=== PATIENT | male | born 1960 | race Caucasian/White ===

== ENCOUNTER 2017-05-17 09:01 | Inpatient (IN) | payer MEDICARE, MEDICAID ==
[2017-05-17] VITALS (21 sets, daily range): BP systolic 106–152; BP diastolic 61–96
[~2017-05-17] VITALS: Ht 180.3 cm; Wt 133.3 kg
[~2017-05-17 09:01] MED LIST: ALB0.5UD IH; ALBU18HF2 INH; ASPI-1265 PO; ATOR40TA PO; CARV-49 PO; DIGO125T PO; FURO-150 PO; GABA600T2 PO; INSU100V13 SQ; INSU100V9 SQ; LEVO25TA2 PO; METF500T4 PO; MULT-955 PO; NITR0.4T51 SL; OMEP40CA37 PO; POTA20TA19 PO; RIVA15TA PO; famotidine 20mg tablet PO ONE; ringers solution, lacted 1,000 ML IV SCH
[2017-05-17 09:58] LABS: BASOPHILS # (AUTO) 0.1 X10'3 (0-0.2); BASOPHILS % (AUTO) 0.6 % (0-1); EOSINOPHILS # (AUTO) 0.3 X10'3 (0-0.9); EOSINOPHILS % (AUTO) 3.3 % (0-6); HEMATOCRIT 44.6 % (42.0-52.0); LYMPHOCYTES # (AUTO) 1.3 X10'3 (1.1-4.8); LYMPHOCYTES % (AUTO) 12.9 % (21-51); MEAN CORPUSCULAR HEMOGLOBIN 32.7 PG (27.0-31.0); MEAN CORPUSCULAR HGB CONC 33.7 % (33.0-36.5); MEAN PLATELET VOLUME 7.7 FL (7.4-10.4); MONOCYTES # (AUTO) 0.4 X10'3 (0-0.9); MONOCYTES % (AUTO) 4.5 % (2-12); NEUTROPHILS # (AUTO) 7.9 X10'3 (1.8-7.7); NEUTROPHILS % (AUTO) 78.7 % (42-75); PLATELET COUNT 224 X10'3 (140-440); RED CELL DISTRIBUTION WIDTH 15.1 % (11.5-14.5)
[2017-05-17 10:07] LABS: PARTIAL THROMBOPLASTIN TIME 25 SECONDS (22-32); PROTHROMBIN TIME 10.3 SECONDS (9.0-12.0)
[2017-05-17 10:12] LABS: ALANINE AMINOTRANSFERASE 21 U/L (12-78); ALBUMIN 3.7 G/DL (3.4-5.0); ALKALINE PHOSPHATASE 150 IU/L (46-116); ANION GAP 9 (8-16); ASPARTATE AMINO TRANSFERASE 17 U/L (10-37); BILIRUBIN,TOTAL 0.6 MG/DL (0.1-1.0); BLOOD UREA NITROGEN 13 MG/DL (7-18); BUN/CREATININE RATIO 13.1 (5.4-32.0); CALCIUM 9.1 MG/DL (8.5-10.1); CHLORIDE 103 MMOL/L (99-107); CREATININE 0.99 MG/DL (0.60-1.10); GLUCOSE 139 MG/DL (70-104); SODIUM 142 MMOL/L (135-145); TOTAL CARBON DIOXIDE 29.8 MMOL/L (24-32); TOTAL PROTEIN 7.5 G/DL (6.4-8.2); eGFR 78 ML/MIN
[2017-05-17 10:26] LABS: HEMOGLOBIN A1C 6.5 % (4.5-6.2)
[2017-05-17] MEDS ORDERED: NORMAL SALINE IV ONE (10:26)
[2017-05-17] MEDS ORDERED: clindamycin-Cleocin 900mg/D5W 50 ML IV ONE (10:26)
[2017-05-17] MEDS ORDERED: GENTAMICIN IV ONE (10:26)
[2017-05-17] MEDS ORDERED: albuterol 2.5 MG/3 ML nebule NEB ONE (10:50)
[2017-05-17] MEDS ORDERED: carvedilol 6.25mg tablet PO ONE (11:10)
[2017-05-17] MEDS ORDERED: ceFAZolin 1000mg inj ONE (11:27)
[2017-05-17] MEDS ORDERED: BUPIVAcaine/PF 2.5 mg/ml (0.25%) 30ml vial ONE (11:27)
[2017-05-17] MEDS ORDERED: epiNEPHrine 1 mg/ml inj ONE (11:27)
[2017-05-17] MEDS ORDERED: metoprolol tartrate 50mg tablet PO ONE (11:30)
[2017-05-17] MEDS ORDERED: MAGN400C PO (11:38)
[2017-05-17] MEDS ORDERED: FAMO-128 PO (11:38)
[2017-05-17] MEDS ORDERED: METO50TA17 PO (11:38)
[2017-05-17] MEDS ORDERED: CAPT50TA4 PO (11:38)
[2017-05-17] MEDS ORDERED: fentaNYL/PF 50MCG/1 ML 2ML syringe ONE (12:19)
[2017-05-17] MEDS ORDERED: sevoflurane 250ml liquid IH ONE (12:20)
[2017-05-17] MEDS ORDERED: neostigmine methylsulfate 1 MG/ML 10ml vial ONE (13:01)
[2017-05-17] MEDS ORDERED: LIDOcaine 2% (20mg/ml) 5ml vial ONE (13:01)
[2017-05-17] MEDS ORDERED: rocuronium 10mg/ml inj IV ONE (13:01)
[2017-05-17] MEDS ORDERED: ondansetron/PF 4mg/2ml inj ONE (13:01)
[2017-05-17] MEDS ORDERED: esmolol inj. 10 ML IV ONE (13:01)
[2017-05-17] MEDS ORDERED: propofol inj 20 ML IV ONE (13:01)
[2017-05-17] MEDS ORDERED: glycopyrrolate 0.2mg/ml inj ONE (13:02)
[2017-05-17] MEDS ORDERED: CADD PCA waste documentation MC PRN (13:10)
[2017-05-17] MEDS ORDERED: ondansetron/PF 4mg/2ml inj IV PRN ×2 (13:10→13:35)
[2017-05-17] MEDS ORDERED: naloxone 0.4 mg/ml inj IV PRN (13:10)
[2017-05-17] MEDS ORDERED: ringers solution, lacted 1,000 ML IV ONE (13:32)
[2017-05-17] MEDS ORDERED: meperidine/PF 25mg/ml syringe IV PRN ×2 (13:35)
[2017-05-17] MEDS ORDERED: morphine sulfate 8 MG/ML SYRINGE IV PRN ×2 (13:35)
[2017-05-17] MEDS ORDERED: hydrALAZINE 20mg/ml inj. IV PRN (13:35)
[2017-05-17] MEDS ORDERED: meperidine/PF 25mg/ml syringe IV ONE (13:35)
[2017-05-17] MEDS ORDERED: labetalol 20mg/4ml (5mg/ml) syringe IV PRN (13:35)
[2017-05-17] MEDS: HYDROmorphone/NS 1 mg/ml CADD 50 ML IV SCH ×6 (13:38→23:00)
[2017-05-17] MEDS ORDERED: dextrose 50%-water 50ml dispensing syringe IV PRN ×2 (15:05)
[2017-05-17] MEDS ORDERED: MESSAGE TO PHARMACY PO ONE (15:05)
[2017-05-17] MEDS ORDERED: dextrose ORAL solution 15 GM/59 ML bottle PO PRN ×2 (15:05)
[2017-05-17] MEDS ORDERED: glucagon, human recombinant 1mg kit SUBCUT PRN (15:05)
[2017-05-17] MEDS ORDERED: insulin Lispro (HumaLOG) vial - multi-dose SQ SCH (15:05)
[2017-05-17] MEDS: Insulin Detemir pen SQ SCH (21:00)
[2017-05-18 00:30] VITALS: BP 117/68
[2017-05-18] MEDS: HYDROmorphone/NS 1 mg/ml CADD 50 ML IV SCH ×6 (01:00→11:00)
[2017-05-18 04:26] VITALS: BP 133/82
[2017-05-18 08:00] VITALS: BP 128/83
[2017-05-18] MEDS: enoxaparin 40mg/0.4ml syringe SQ SCH (09:33)
[2017-05-18 11:52] VITALS: BP 145/75
[2017-05-18] MEDS: HYDROcodone/acetaminophen 5mg/325mg tablet PO PRN ×2 (14:34→20:17)
[2017-05-18] MEDS ORDERED: non-formulary drug (Albuterol Sulfate Nebs* (Proventil Nebs*) 2.5 MG) IH PRN (19:20)
[2017-05-18] MEDS ORDERED: nitroGLYCERIN 0.4mg SUBLingual tab SL PRN (19:20)
[2017-05-18] MEDS ORDERED: albuterol 2.5 MG/3 ML nebule NEB PRN (19:40)
[2017-05-18 20:00] VITALS: BP 120/67
[2017-05-18] MEDS: gabapentin 300mg capsule PO SCH (20:16)
[2017-05-18] MEDS: metFORMIN 500mg tablet PO SCH (20:22)
[2017-05-18] MEDS: Insulin Detemir pen SQ SCH (21:00)
[2017-05-18] MEDS ORDERED: famotidine 20mg tablet PO SCH (21:00)
[2017-05-19] VITALS: BP 102/53
[2017-05-19] MEDS: HYDROcodone/acetaminophen 5mg/325mg tablet PO PRN ×3 (03:07→13:40)
[2017-05-19 07:22] VITALS: BP 152/89
[2017-05-19] MEDS ORDERED: INSULIN GLARGINE HUM REC ANLOG 15 UNIT SQ SCH (08:00)
[2017-05-19] MEDS ORDERED: lisinopril 20mg tablet PO SCH (08:00)
[2017-05-19] MEDS ORDERED: potassium Cl 20 mEq SR tablet PO SCH (08:00)
[2017-05-19] MEDS ORDERED: digoxin 125mcg (0.125mg) tablet PO SCH (08:00)
[2017-05-19] MEDS ORDERED: levoTHYROXINE 25mcg tablet PO SCH (08:00)
[2017-05-19] MEDS ORDERED: aspirin 81mg tab.chew PO SCH (08:00)
[2017-05-19] MEDS ORDERED: metoprolol tartrate 50mg tablet PO SCH (08:00)
[2017-05-19] MEDS ORDERED: atorvastatin 20mg tablet PO SCH (08:00)
[2017-05-19] MEDS ORDERED: furosemide 20MG tablet PO SCH (08:00)
[2017-05-19] MEDS ORDERED: rivaroxaban 15mg tablet PO SCH (08:00)
[2017-05-19] MEDS ORDERED: magnesium oxide 400mg tablet PO SCH (08:00)
[2017-05-19] MEDS ORDERED: multivitamins, therapeutics tablet PO SCH (08:00)
[2017-05-19] MEDS: enoxaparin 40mg/0.4ml syringe SQ SCH (08:07)
[2017-05-19] MEDS: gabapentin 300mg capsule PO SCH (08:07)
[2017-05-19] MEDS: metFORMIN 500mg tablet PO SCH (08:09)
== END 2017-05-19 15:59 | disposition home or self-care (01) | DRG 418 ==
LOC: PAS 09:01 → EDSTATUS 12:00 → SUR 3N 15:02 → PAS 15:02 → SUR 3N 05-18 07:30
PROVIDERS: ADMIT Surgery; ATTEND Surgery
PROC: 0FB04ZX Excision of Liver, Percutaneous Endoscopic Approach, Diagnostic (ICD-10-PCS; 2017-05-17)
PROC: 0FT44ZZ Resection of Gallbladder, Percutaneous Endoscopic Approach (ICD-10-PCS; principal; 2017-05-17 12:20)
DX: K80.10 Calculus of gallbladder with chronic cholecystitis without obstruction (principal); Z68.41 Body mass index [BMI] 40.0-44.9, adult; I11.0 Hypertensive heart disease with heart failure; I50.9 Heart failure, unspecified; I25.10 Atherosclerotic heart disease of native coronary artery without angina pectoris; J44.9 Chronic obstructive pulmonary disease, unspecified; E11.9 Type 2 diabetes mellitus without complications; I48.91 Unspecified atrial fibrillation; E03.9 Hypothyroidism, unspecified; F32.9 Major depressive disorder, single episode, unspecified; E66.9 Obesity, unspecified; G47.33 Obstructive sleep apnea (adult) (pediatric); K21.9 Gastro-esophageal reflux disease without esophagitis; E78.5 Hyperlipidemia, unspecified; F17.210 Nicotine dependence, cigarettes, uncomplicated; F12.90 Cannabis use, unspecified, uncomplicated; Z88.0 Allergy status to penicillin; Z91.018 Allergy to other foods; Z79.899 Other long term (current) drug therapy; Z79.4 Long term (current) use of insulin; Z79.01 Long term (current) use of anticoagulants; Z79.82 Long term (current) use of aspirin; Z79.84 Long term (current) use of oral hypoglycemic drugs; Z85.820 Personal history of malignant melanoma of skin; Z83.3 Family history of diabetes mellitus; Z80.9 Family history of malignant neoplasm, unspecified; Z82.49 Family history of ischemic heart disease and other diseases of the circulatory system
CPT/HCPCS: 36415; 71010; 80053; 82948; 83036; 85025; 85610; 85730; 88304; 88307; 88313; 93005; 94640; 94760; A7000; J0171; J0690; J1170; J1580; J1650; J2001; J2175; J2405; J2704; J2710; J3010; J3490; J7030; J7120